=== PATIENT | female | born 1995 | race Hispanic/Latino ===

== ENCOUNTER 2019-10-16 18:16 | Emergency (ER) | payer OTHER ==
[2019-10-16 19:17] LABS: #Basophils 0.1 thou/uL (0.0-0.2); #Eosinphils 0.2 thou/uL (0.0-0.7); #Lymphocytes 2.8 thou/uL (1.20-3.40); #Neutrophils 9.5 thou/uL (1.40-6.50); %Basophils 0.7 % (0.0-1.0); %Eosinophils 1.5 % (0.0-10.0); %Lymphocytes 20.8 % (21.0-51.0); %Monocytes 7.2 % (0.0-10.0); %Neutrophils 69.8 % (42.0-75.0); Hemoglobin 13.7 g/dL (12.0-16.0); Mean Corpuscular HGB CONC 34.4 g/dL (32.0-36.0); Mean Corpuscular Hemoglobin 29.4 pg (27.0-31.0); Mean Corpuscular Volume 85.6 fL (78.0-98.0); Mean Platelet Volume 7.6 fL (7.4-10.4); Platelet Count 291 thou/uL (130-400); RBC Distribution Width 11.7 % (11.5-14.5); Red Blood Cell (RBC) Count 4.66 mill/uL (4.20-5.40); White Blood Cell (WBC) Count 13.5 thou/uL (4.8-10.8)
[2019-10-16 19:26] LABS: Bilirubin Negative (Negative); Blood, Urine 3+ (Negative); Clarity Turbid (Clear); Glucose, Urine (Dipstick) Normal (Negative); Leukocyte 25 Leu/uL (Negative); Nitrite Negative (Negative); Protein, Urine (Dipstick) 30 mg/dL (Neg-Trace); RBC/HPF Greater than 50 HPF (0-3); Urobilinogen 3 mg/dL (Less than 2)
[2019-10-16 19:27] LABS: Bacteria/HPF 1+ HPF (None Seen)
[2019-10-16 19:40] LABS: ALT (SGPT) 31 U/L (8-55); AST (SGOT) 24 U/L (5-34); Albumin 4.3 g/dL (3.5-5.0); Alkaline Phosphatase 65 U/L (40-110); Anion Gap 13 mmol/L (10-20); BUN (Urea Nitrogen) 5 mg/dL (7.0-18.7); Bilirubin, Total 0.3 mg/dL (0.2-1.2); Calc. Creatinine Clearance 0 mL/min (70-130); Calcium 9.4 mg/dL (7.8-10.44); Carbon Dioxide 24 mmol/L (22-29); Chloride 105 mmol/L (98-107); Estimated GFR-MDRD Greater than 90; Globulin 2.8 g/dL (2.4-3.5); Glucose 89 mg/dL (70-105); Protein, Total 7.1 g/dL (6.0-8.3); Sodium 138 mmol/L (136-145)
--- NOTE | 2019-10-16 20:03 | ULT ---
TRANSVAGINAL PELVIC ULTRASOUND: 10/16/19 INDICATION: History of vaginal bleeding and report of being 12 weeks . FINDINGS: There is a single live intrauterine gestation with cardiac activity noted at 163 beats per minute. The crown-rump length was 5.88 cm, given an estimated gestational age of 12 weeks and 3 days. The femoral length was 1.27 cm giving estimated gestational age of 13 weeks, 5 days. The abdominal circumference was 7.09 cm giving an estimated gestational age of 13 weeks, and 5 days. The biparietal diameter was 2.16 cm, giving an estimated gestational age of 13 weeks, 4 days. The average gestational age by ultrasound is 13 weeks, 0 days. Estimated due date is 04/22/20. Clinical age was 12 weeks, 2 days with estimated due date of 04/27/20. No free fluid is identified. Placenta is anterior in location. The fetus is in breech presentation. A FI visually appears within normal limits. IMPRESSION: Single live intrauterine gestation with size and dates as above. POS: MISHA
== END 2019-10-16 22:25 | disposition home or self-care (01) ==
LOC: ERS 18:16
DX: O20.9 Hemorrhage in early pregnancy, unspecified (principal); Z3A.12 12 weeks gestation of pregnancy
CPT/HCPCS: 36415; 76856; 80053; 81003; 81015; 84702; 85025

== ENCOUNTER 2020-03-09 02:19 | Inpatient (IN) | payer OTHER ==
[2020-03-09 02:48] VITALS: BMI 37.4
[2020-03-09] MEDS ORDERED: hydrALAZINE 20 MG/ML VIAL SLOW IVP PRN ×3 (03:00→13:48)
[2020-03-09] MEDS ORDERED: Ondansetron PF 4 MG/2 ML Vial IVP PRN ×3 (03:19→13:48)
[2020-03-09] MEDS ORDERED: Butorphanol Tartrate 1 MG/ML VIAL SLOW IVP PRN (03:19)
[2020-03-09] MEDS ORDERED: Calcium Gluc 4.6 MEQ/10 ML (100 MG/ML) SLOW IVP PRN (03:19)
[2020-03-09] MEDS ORDERED: Labetalol HCl 100 MG/20 ML VIAL SLOW IVP PRN (03:21)
[2020-03-09] MEDS ORDERED: Magnesium Sulfate 20 gm/500 ml 20 GM/500 ML BAG ONE (03:24)
[2020-03-09] MEDS ORDERED: Labetalol HCl 100 MG/20 ML VIAL ONE (03:24)
[2020-03-09] MEDS ORDERED: Magnesium Sulfate 20 GM/WATER 500 ML BAG IVPB SCH (03:30)
[2020-03-09] MEDS ORDERED: Betamet Acet/Betamet Na Ph 30 MG/5 ML VIAL IM SCH (03:30)
[2020-03-09] MEDS ORDERED: Azithromycin 250 MG TAB PO SCH (03:30)
[2020-03-09] MEDS ORDERED: Magnesium Sulfate 20 gm/500 ml 20 GM/500 ML BAG IVPB SCH (03:30)
[2020-03-09 03:32] LABS: Hemoglobin 12.2 g/dL (12.0-16.0); Mean Corpuscular HGB CONC 34.4 g/dL (32.0-36.0); Mean Corpuscular Hemoglobin 28.7 pg (27.0-31.0); Mean Corpuscular Volume 83.4 fL (78.0-98.0); Mean Platelet Volume 8.9 fL (7.4-10.4); Platelet Count 229 thou/uL (130-400); RBC Distribution Width 12.8 % (11.5-14.5); Red Blood Cell (RBC) Count 4.26 mill/uL (4.20-5.40); White Blood Cell (WBC) Count 12.7 thou/uL (4.8-10.8)
[2020-03-09] MEDS ORDERED: diphenhydrAMINE 50 MG/ML VIAL ONE (03:50)
[2020-03-09 03:51] LABS: ALT (SGPT) 10 U/L (8-55); AST (SGOT) 15 U/L (5-34); Albumin 3.4 g/dL (3.5-5.0); Alkaline Phosphatase 170 U/L (40-110); Anion Gap 15 mmol/L (10-20); BUN (Urea Nitrogen) 6 mg/dL (7.0-18.7); Bilirubin, Total 0.5 mg/dL (0.2-1.2); Calc. Creatinine Clearance 245 mL/min (70-130); Carbon Dioxide 20 mmol/L (22-29); Chloride 109 mmol/L (98-107); Estimated GFR-MDRD Greater than 90; Globulin 3.3 g/dL (2.4-3.5); Glucose 87 mg/dL (70-105); Potassium 3.5 mmol/L (3.5-5.1); Protein, Total 6.7 g/dL (6.0-8.3); Sodium 140 mmol/L (136-145)
--- NOTE | 2020-03-09 03:59 | HP ---
PRIMARY OB: Dr. Cody Pablo. CHIEF COMPLAINT: Abdominal cramping. HISTORY OF PRESENT ILLNESS: Patient is a 24-year-old G1, P0 female, with an intrauterine at 33 weeks and 5 days, reporting with uterine contractions that she has had in the last several days and said it gotten worse and became painful since midnight last night. The patient reports that since about 1230 to 1 o'clock, she has been having a watery discharge, and has come for evaluation. Patient denies fever, cough, headache, chest pain, shortness of breath, nausea, vomiting, or diarrhea. She does report constipation. She denies any new rashes, hip problems, knee problems, or muscle weakness. Denies vaginal bleeding. Denies urinary urgency or frequency. PAST MEDICAL HISTORY: Negative. PAST SURGICAL HISTORY: Negative. ALLERGIES: NO KNOWN DRUG ALLERGIES. MEDICATIONS: vitamins. SOCIAL HISTORY: Denies drug, alcohol, or tobacco use. OB LABS: Unavailable at the time of dictation. REVIEW OF SYSTEMS: Per HPI. PHYSICAL EXAMINATION: VITAL SIGNS: Blood pressure on arrival 160/92, heart rate of 104, respiratory rate of 20, saturating 99% on room air, and temperature 99.4. GENERAL: She appears to be in no acute distress. She is alert, oriented, cooperative, and pleasant to interact with. HEAD: Normocephalic, atraumatic. LUNGS: Clear to auscultation bilaterally. HEART: Has a regular rate and rhythm. ABDOMEN: Gravid, soft, and nontender. She does have some lower pelvic tenderness to palpation with deviation of the uterus to the left and right. EXTREMITIES: Nontender. She does have 2+ DTRs. No consistent clonus. : She has clear mucousy watery discharge on her perineum and vulva. On speculum exam, she has positive pulling. She is 3 cm, 80% effaced, -2 station. LABORATORY DATA: heart tracing shows the fetus with a baseline in the 150s with moderate long-term variability. CMP :wnl, CBC wc 12.7 hgb 12.2 hct 35.5 ptl 225 urine random protein 19 uirne creatinine 39 ratio 0.5 ASSESSMENT AND PLAN: Patient is a 24-year-old G1, P0 female with an intrauterine at 33 weeks and 5 days, experiencing labor with rupture of membranes and preeclampsia with severe features by blood pressure. Patient is being placed on magnesium for seizure prophylaxis and tocolysis, getting betamethasone on board for lung maturity and treating her blood pressures. She has so far received 20 mg of labetalol IV. Her primary OB will be contacted in the morning. Anticipate delivery in the next 1-2 days.. Job ID: [id number] MTDD
[2020-03-09] MEDS: Ampicillin 2 GM in Sodium Chloride 0.9% 100 ML IVPB SCH ×2 (04:00→10:35)
[2020-03-09] MEDS: Fentanyl 4 mcg/Bup 0.1% Cadd 100 ML in Premix Bag 1 BAG EPIDURAL SCH ×2 (04:25→10:41)
[2020-03-09] MEDS ORDERED: Lactated Ringer's 500 ML IV PRN (04:32)
[2020-03-09] MEDS ORDERED: EPHEDRINE 25 MG/5 ML SYRINGE SLOW IVP PRN (04:32)
[2020-03-09] MEDS ORDERED: Promethazine HCl 25 MG/ML VIAL IM PRN (04:32)
[2020-03-09] MEDS ORDERED: Naloxone HCl 0.4 mg/ml Vial IVP PRN ×2 (04:32)
[2020-03-09] MEDS ORDERED: diphenhydrAMINE 50 MG/ML VIAL IVP PRN (04:32)
[2020-03-09] MEDS ORDERED: Acetaminophen 325 MG TAB PO PRN (04:32)
[2020-03-09] MEDS ORDERED: Communication Order-Pharmacy FS SCH (04:45)
[2020-03-09] MEDS ORDERED: Fentanyl 4 mcg/Bupivacaine 0.1% Cassette 100 ML EPIDURAL SCH (04:45)
[2020-03-09 05:14] LABS: Creatinine, Urine 39.28 mg/dL (47-110)
[2020-03-09 05:47] LABS: Syphilis Antibody Nonreactive (Nonreactive); Syphilis Antibody Index 0.03 S/CO (<1.00 Non-Reactive)
[2020-03-09 05:48] LABS: HBSAg Index 0.17 S/CO (0-0.99); Hep B Surf Ag Non-Reactive S/CO (NonReactive)
[2020-03-09] MEDS ORDERED: Ampicillin 2 GM in Sodium Chloride 0.9% 100 ML IVPB SCH (06:00)
[2020-03-09 06:47] LABS: SARS-CoV-2 NAA Rapid Test Not Detected (NotDetected)
[2020-03-09] MEDS ORDERED: NS / Oxytocin 40 units/1000ml 1,000 ML IV SCH ×2 (09:00→13:48)
--- NOTE | 2020-03-09 09:31 | PDOC.LDPN ---
Labor & Delivery Progress Note - Subjective Subjective: comfortable - Objective Vital signs reviewed and normal: yes (mild range) Dilation: 6 Effacement: 90% Station: 0 FHT: category 1 - Assessment (1) 33 weeks gestation of Code(s): Z3A.33 - 33 WEEKS GESTATION OF Current Visit: Yes Status: Acute (2) PROM with onset of labor within 24 hours of rupture Code(s): O42.00 - YVES ROM, ONSET LABOR W/N 24 HR OF RUPT, UNSP WEEKS OF GEST Current Visit: Yes Status: Acute (3) Severe pre-eclampsia Code(s): O14.10 - SEVERE PRE-ECLAMPSIA, UNSPECIFIED TRIMESTER Current Visit: Yes Status: Acute
--- NOTE | 2020-03-09 10:10 | ULT ---
LIMITED OBSTETRICAL ULTRASOUND: INDICATION: History of preeclampsia. COMPARISON: Prior exam dated 10/16/2019. FINDINGS: There is a single live intrauterine gestation with cardiac activity at 149 b.p.m. The fetus is in ve rtex positioning. The placenta is anterior in location. There is no overt evidence of previa. The MASON is 9.3 cm. Visualized stomach and bladder appear within normal limits. anatomy was somewh at limited due to the advanced gestational age. Biparietal diameter measures 8.22 cm giving an estimated gestational age of 33 weeks 0 days (27th per centile). The head circumference is 29.10 cm giving an estimated gestational age of 32 weeks and 0 days (31st p ercentile). The abdominal circumference was 29.35 cm giving an estimated gestational age of 33 weeks and 2 days ( 42nd percentile). The femoral length was 6.47 cm giving an estimated gestational age of 33 weeks and 3 days (31st perce ntile). Estimated weight is 2,139 gm +/- 317 gm (4 pounds 11 ounces +/- 11 ounces)(27th percentile). The estimated gestational age by ultrasound is 33 weeks and 0 days with estimated due date of 2019. Clinical age is 33 weeks and 5 days with estimated due date of 04/22/2020. IMPRESSION: Single live intrauterine gestation with size and dates as above. POS: BH
--- NOTE | 2020-03-09 11:40 | PDOC.OPDEL ---
OB Operative/Delivery Note Delivery Dr/Surgeon: Samy Pre-Delivery Diagnosis: active labor (spontaneous PTL and PROM, severe PIH) Procedure/Post Delivery Dx: spontaneous vaginal delivery Weeks gestation: 33 Anesthesia: epidural - Findings A Sex: male - 1 min: 8 - 5 min: 9 - Additional Findings/Plan Placenta delivered: spontaneous Repaired Obstetrical Laceration: 1st degree (and right periurethral) Estimated blood loss: 450ml Post delivery plan: recovery in LICU (for magnesium recovery)
[2020-03-09] MEDS ORDERED: Lanolin Ointment 7 GM TUBE TOP PRN (13:48)
[2020-03-09] MEDS ORDERED: HYDROcodone/Acetaminophen 5/325 mg Tablet PO PRN ×2 (13:48)
[2020-03-09] MEDS ORDERED: Bisacodyl 10 MG SUPP PR PRN (13:48)
[2020-03-09] MEDS ORDERED: Milk Of Magnesia 30 ML UDCUP PO PRN (13:48)
[2020-03-09] MEDS ORDERED: Benzocaine-Menthol 82.5 ML CAN TOP PRN (13:48)
[2020-03-09] MEDS ORDERED: Calcium Gluconate 4.6 MEQ in Sodium Chloride 0.9% 100 ML IVPB PRN (13:48)
[2020-03-09] MEDS: Magnesium Sulfate 20 gm/500 ml 20 GM/500 ML BAG IVPB SCH (21:07)
[2020-03-10] MEDS: Magnesium Sulfate 20 gm/500 ml 20 GM/500 ML BAG IVPB SCH (07:11)
[2020-03-10] MEDS ORDERED: NS / Oxytocin 40 units/1000ml 1,000 ML IV SCH (08:30)
[2020-03-10] MEDS ORDERED: Milk Of Magnesia 30 ML UDCUP PO PRN (08:30)
[2020-03-10] MEDS ORDERED: Promethazine HCl 25 MG/ML VIAL IM PRN (08:30)
[2020-03-10] MEDS ORDERED: HYDROcodone/Acetaminophen 5/325 mg Tablet PO PRN ×2 (08:30)
[2020-03-10] MEDS ORDERED: Ondansetron PF 4 MG/2 ML Vial IVP PRN (08:30)
[2020-03-10] MEDS ORDERED: hydrALAZINE 20 MG/ML VIAL SLOW IVP PRN (08:30)
[2020-03-10] MEDS ORDERED: Benzocaine-Menthol 82.5 ML CAN TOP PRN (08:30)
[2020-03-10] MEDS ORDERED: diphenhydrAMINE 25 MG CAP PO PRN (08:30)
[2020-03-10] MEDS ORDERED: Bisacodyl 10 MG SUPP PR PRN (08:30)
--- NOTE | 2020-03-10 08:30 | PDOC.PP ---
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, pumping PO intake tolerated: yes Flatus: yes Ambulation: yes Weight Weight 225 lb normal to mild range overnight - Physical Examination General: NAD Respiratory: non-labored breathing Abdominal: no distention Fundus firm & at: below umb Psychiatric: A&Ox3, normal affect Result Diagrams: 03/09/20 03:24 03/09/20 03:24 Additional Labs: Post Labs Hep Bs Antigen Non-Reactive S/CO (NonReactive) 03/09/20 03:37 Blood Type A POSITIVE 03/09/20 03:37 (1) 33 weeks gestation of Code(s): Z3A.33 - 33 WEEKS GESTATION OF Status: Acute (2) PROM with onset of labor within 24 hours of rupture Code(s): O42.00 - YVES ROM, ONSET LABOR W/N 24 HR OF RUPT, UNSP WEEKS OF GEST Status: Acute (3) Severe pre-eclampsia Code(s): O14.10 - SEVERE PRE-ECLAMPSIA, UNSPECIFIED TRIMESTER Status: Acute - Assessment/Plan PPD1 doing well, mild range BP on magnesium now. Plan to DC magnesium @ 24hr post delivery. Use of oral antihypertensives if indicated reviewed.
[2020-03-10] MEDS: Docusate Calcium (SURFAK) 240 MG CAP PO SCH ×4 (08:39→22:52)
[2020-03-10] MEDS: Ibuprofen 800 MG TAB PO SCH ×5 (08:39→22:52)
[2020-03-10] MEDS: Ferrous Sulfate 325 MG TAB PO SCH ×3 (08:39→22:25)
[2020-03-10] MEDS ORDERED: Adacel (T-DAP) 0.5 ML SYRINGE IM ONE (09:00)
[2020-03-10] MEDS ORDERED: Prenatal Vitamin 1 TAB PO SCH (09:00)
[2020-03-10 09:23] LABS: Hemoglobin 10.2 g/dL (12.0-16.0); Mean Corpuscular Hemoglobin 28.5 pg (27.0-31.0); Mean Corpuscular Volume 86.3 fL (78.0-98.0); Mean Platelet Volume 8.7 fL (7.4-10.4); Platelet Count 254 thou/uL (130-400); RBC Distribution Width 13.1 % (11.5-14.5); Red Blood Cell (RBC) Count 3.58 mill/uL (4.20-5.40); White Blood Cell (WBC) Count 14.6 thou/uL (4.8-10.8)
[2020-03-10] MEDS: Prenatal Vitamin 1 TAB PO SCH (22:21)
[2020-03-11] MEDS: Ibuprofen 800 MG TAB PO SCH ×3 (05:14→22:00)
[2020-03-11] MEDS: Ferrous Sulfate 325 MG TAB PO SCH ×2 (08:35→19:00)
[2020-03-11] MEDS: Prenatal Vitamin 1 TAB PO SCH (09:06)
[2020-03-11] MEDS: Docusate Calcium (SURFAK) 240 MG CAP PO SCH ×2 (09:06→22:00)
--- NOTE | 2020-03-11 16:15 | PDOC.PP ---
Post Progress Note Post Day #: 2 Subjective: Pt is doing well. Resting. Denies NOLASCO, RUQ pain, scomata. She is pumping and going to NICU to see infant. PO intake tolerated: yes Flatus: yes Ambulation: yes Vital Signs (12 hours) Temp Pulse Resp BP Pulse Ox 03/11/20 12:08 98.9 F 87 20 141/70 H 99 03/11/20 08:01 98.2 F 86 20 129/65 100 03/11/20 05:15 98.0 F 89 14 111/58 L Weight Weight 225 lb - Physical Examination General: NAD Cardiovascular: RRR Respiratory: non-labored breathing Abdominal: lochia, no distention, appropriately TTP Extremities: negative homans (B) Skin: no rash Neurological: no gross focal deficits Psychiatric: A&Ox3, normal affect Result Diagrams: 03/10/20 09:08 03/09/20 03:24 Additional Labs: Post Labs Hep Bs Antigen Non-Reactive S/CO (NonReactive) 03/09/20 03:37 Blood Type A POSITIVE 03/09/20 03:37 (1) (spontaneous vaginal delivery) Code(s): O80 - ENCOUNTER FOR FULL-TERM UNCOMPLICATED DELIVERY Status: Acute (2) 33 weeks gestation of Code(s): Z3A.33 - 33 WEEKS GESTATION OF Status: Acute (3) PROM with onset of labor within 24 hours of rupture Code(s): O42.00 - YVES ROM, ONSET LABOR W/N 24 HR OF RUPT, UNSP WEEKS OF GEST Status: Acute (4) Severe pre-eclampsia Code(s): O14.10 - SEVERE PRE-ECLAMPSIA, UNSPECIFIED TRIMESTER Status: Acute - Assessment/Plan G1 now p1 s/p and severe preeclampsia. Normotensive now. No [employer] features Routine care Plan for discharge home tomorrow.
[2020-03-12] MEDS: Ibuprofen 800 MG TAB PO SCH (04:57)
[2020-03-12] MEDS: Ferrous Sulfate 325 MG TAB PO SCH (08:29)
[2020-03-12] MEDS: Docusate Calcium (SURFAK) 240 MG CAP PO SCH (08:29)
[2020-03-12] MEDS: Prenatal Vitamin 1 TAB PO SCH (08:29)
[2020-03-12 08:30] VITALS: BP 133/75; TEMP 98.6
== END 2020-03-12 09:50 | disposition home or self-care (01) | DRG 805 ==
LOC: L&D/OP 02:19 → L&D 05:00 → 3SW 03-10 15:01
PROVIDERS: ADMIT Obstetrics & Gynecology; ATTEND Obstetrics & Gynecology
PROC: 10E0XZZ Delivery of Products of Conception, External Approach (ICD-10-PCS; principal; 2020-03-09)
PROC: 0HQ9XZZ Repair Perineum Skin, External Approach (ICD-10-PCS; 2020-03-09)
DX: O42.013 Preterm premature rupture of membranes, onset of labor within 24 hours of rupture, third trimester (principal); O60.14X0 Preterm labor third trimester with preterm delivery third trimester, not applicable or unspecified; Z37.0 Single live birth; Z3A.33 33 weeks gestation of pregnancy; O14.14 Severe pre-eclampsia complicating childbirth; O70.0 First degree perineal laceration during delivery; Z20.828 Contact with and (suspected) exposure to other viral communicable diseases
CPT/HCPCS: 36415; 51702; 76815; 80053; 81003; 82570; 83735; 84156; 85027; 86780; 86850; 86900; 86901; 87340; 88307; 99285; J0290; J0702; J1200; J3475; J3490; U0002